=== PATIENT | male | born 1985 | race Caucasian/White ===

== ENCOUNTER 2016-05-17 09:52 | Emergency (ER) | payer OTHER, MEDICAID ==
[2016-05-17 11:36] VITALS: BP 115/70
[2016-05-17] MEDS ORDERED: Lidocaine 2% W/EPI 1:100,000* 20 ML MDV ONE (11:56)
--- NOTE | 2016-05-17 11:56 | UC ---
Skin Complaint HPI - HPI Summary HPI Summary: The patient comes in today for: 1. Lower back/tail bone soreness: Onset: 6 days ago, but mostly painful starting yesterday. Palliative/provocative: Pressure makes the area more tender. Quality: Sore Region: Coccyx area. Severity: 6/10 Time: Constant. Associated symptoms: The patient has a history of a pilonidal cyst (March of 2015). He saw Dr. Lindquist and lanced it. Fevers: None. Drainage: None. * - History of Current Complaint Chief Complaint: UCSkin Time Seen by Provider: 05/17/16 11:48 Stated Complaint: CYST ON TAILBONE Hx Obtained From: Patient - Allergy/Home Medications Allergies/Adverse Reactions: Allergies Allergy/AdvReac Type Severity Reaction Status Date / Time No Known Allergies Allergy Verified 03/30/15 17:10 Home Medications: Home Medications NK [No Home Medications Reported] 05/17/16 [History Confirmed 05/17/16] Review of Systems Constitutional: Negative Skin: Rash Eyes: Negative ENT: Negative Respiratory: Negative Cardiovascular: Negative Gastrointestinal: Negative Genitourinary: Negative All Other Systems Reviewed And Are Negative: Yes PMH/Surg Hx/FS Hx/Imm Hx Previously Healthy: Yes Endocrine History Of: Denies: Diabetes, Thyroid Disease, Hyperthyroidism, Hypothyroidism, Dyslipidemia Cardiovascular History Of: Denies: Cardiac Disorders, Hypertension, Pacemaker/ICD, Myocardial Infarction , Congestive Heart Failure, Atrial Fibrillation, Deep Vein Thrombosis, Bleeding Disorders Respiratory History Of: Denies: COPD, Asthma, Bronchitis, Pneumonia, Pulmonary Embolism GI/ History Of: Denies: Gastroesophageal Reflux, Ulcer, Gastrointestinal Bleed, Gall Bladder Disease, Kidney Stones, Diverticulitis, Renal Disease, Urosepsis Neurological History Of: Denies: TIA, CVA, Dementia, Seizures, Migraine Psychological History Of: Denies: Anxiety, Depression, Bipolar Disorder, Schizophrenia, Post Traumatic Stress Disorder Cancer History Of: Denies: Lung Cancer, Colorectal Cancer, Breast Cancer, Prostate Cancer, Cervical Cancer Other History Of: Negative For: HIV, Hepatitis B, Hepatitis C, Anticoagulant Therapy - Surgical History Surgical History: None - Family History Known Family History: Negative: Cardiac Disease, Hypertension - Social History Occupation: Unemployed Alcohol Use: Daily Substance Use Type: None Smoking Status (MU): Heavy Every Day Tobacco Smoker Type: Cigarettes Amount Used/How Often: 1 pack daily Length of Time of Smoking/Using Tobacco: started age 15 Physical Exam Triage Information Reviewed: Yes Appearance: Well-Appearing, No Pain Distress, Well-Nourished Vital Signs: Initial Vital Signs Temp 98.3 F 05/17/16 11:32 Pulse 96 05/17/16 11:32 Resp 16 05/17/16 11:32 BP 115/70 05/17/16 11:32 Pulse Ox 100 05/17/16 11:32 Vital Signs Reviewed: Yes Eyes: Positive: Conjunctiva Clear. Negative: Discharge ENT: Positive: Normal ENT inspection, Hearing grossly normal. Negative: Pharyngeal erythema, Nasal congestion, Nasal drainage, TM bulging, TM dull, TM red, Tonsillar swelling, Tonsillar exudate Dental: Negative: Gross Decay/Caries @, Dental Fracture @ Neck: Positive: Supple, Nontender, No Lymphadenopathy. Negative: Nuchal Rigidity Respiratory: Positive: Chest non-tender, Lungs clear, No respiratory distress, No accessory muscle use. Negative: Crackles, Wheezing Cardiovascular: Positive: RRR, No Murmur Abdomen Description: Positive: Nontender, No Organomegaly, Soft. Negative: Distended, Guarding, Peritoneal Signs Musculoskeletal: Positive: Strength Intact, ROM Intact Neurological: Positive: Alert, Muscle Tone Normal Psychological: Positive: Age Appropriate Behavior, Consolable Skin: Positive: Other - On the right side of the mid gluteal cleft, there was erythema about 4-5 cm. There was a 1 to 1.5 cm of fluctuant center.. Negative : rashes Course/Dx - Course Course Of Treatment: AFter less than 1 cc of 2% lidocaine with epi was instilled in the skin overlying the fluctuant area, an "X" cut was made. A mosquito hemostat was used to open the cavity. Gentle pressure was used to evacuate the pus. After running the hemostat in the cavity to break any pus pockets, an iodoform gauze ribben was put in the cavity and a dressing applied. - Differential Diagnoses - Skin Complaint Differential Diagnoses: Abscess, Cellulitis - Diagnoses Provider Diagnoses: Pilonidal cyst abscess. Discharge - Discharge Plan Condition: Stable Disposition: HOME Patient Education Materials: Pilonidal Cyst (GEN), Abscess (ED) Referrals: No Primary Care Phys,NOPCP [Primary Care Provider] - 1 Week (Please see your primary care provider in about a week. If you don't have a primary care provider, please reference the included sheet of local provider. If you get worse, please be seen sooner. If you are not able to get in timely, you can come back to see us.) Anrde Tidwell MD [Medical Doctor] - As Soon As Possible (Please contact Dr. Tidwell's office for an appointment for consideration of removal of your pilonidal cyst once healed. ) Additional Instructions: Please apply hot compresses or soak your rear end in hot water (as hot as you can) to the area keeping it hot during a full 20 minutes 4-5 times a day or as often as you can to help with healing. Check the area daily for redness, drainage, tenderness and swelling. These four conditions should be improving over the next 1-2 weeks. When the abscess cavity is so shallow that the drain is out, and there is minimal to no redness, drainage, tenderness, or swelling, please contact the general surgeon for consideration for removal.
== END 2016-05-17 12:42 | disposition home or self-care (01) ==
LOC: UCCORT 09:52
DX: L05.01 Pilonidal cyst with abscess (principal); F17.210 Nicotine dependence, cigarettes, uncomplicated
CPT/HCPCS: 10080; 87070; 87205; 87640; 87641; 99211; G0463

== ENCOUNTER 2018-06-06 10:01 | Emergency (ER) | payer BC, MEDICAID, OTHER ==
[2018-06-06 10:43] VITALS: BP 125/91
[2018-06-06] MEDS ORDERED: Fluorescein Sodium TOPICAL* 1 MG TEST STRIP OPHTHALMIC ONE (10:52)
[2018-06-06] MEDS ORDERED: Tetracaine 0.5% OPTH.SOL 4 ML* 1 DROP BTL ONE (10:58)
--- NOTE | 2018-06-06 10:59 | UC ---
Eye Complaint HPI - HPI Summary HPI Summary: 32 yo male with FB sensation left eye after grinding occurred two days ago tearing Td UTD - History of Current Complaint Chief Complaint: UCEye Stated Complaint: LT EYE CONCERN Time Seen by Provider: 06/06/18 10:40 Hx Obtained From: Patient Onset/Duration: Gradual Onset Timing: Constant Severity Initially: Moderate Severity Currently: Moderate Pain Intensity: 6 Pain Scale Used: 0-10 Numeric Location of Injury: Globe Character: Foreign Body Sensation Aggravating Factor(s): Light, Blinking Associated Signs And Symptoms: Positive: Drainage (Clear) Related History: Foreign Body Eyes: 1 - FB - Risk Factors Penetrating Injury Risk Factor: Grinding - Allergies/Home Medications Allergies/Adverse Reactions: Allergies Allergy/AdvReac Type Severity Reaction Status Date / Time No Known Allergies Allergy Verified 06/06/18 10:37 PMH/Surg Hx/FS Hx/Imm Hx Previously Healthy: Yes Other History Of: Negative For: HIV, Hepatitis B, Hepatitis C, Anticoagulant Therapy - Surgical History Surgical History: None - Family History Known Family History: Negative: Cardiac Disease, Hypertension - Social History Alcohol Use: Occasionally Substance Use Type: None Smoking Status (MU): Heavy Every Day Tobacco Smoker Type: Cigarettes Amount Used/How Often: 1 PPD Length of Time of Smoking/Using Tobacco: started age 15 Review of Systems All Other Systems Reviewed And Are Negative: Yes Constitutional: Positive: Negative Skin: Positive: Negative Eyes: Positive: Eye Redness ENT: Positive: Negative Respiratory: Positive: Negative Cardiovascular: Positive: Negative Gastrointestinal: Positive: Negative Genitourinary: Positive: Negative Motor: Positive: Negative Neurovascular: Positive: Negative Musculoskeletal: Positive: Negative Neurological: Positive: Negative Psychological: Positive: Negative Physical Exam Triage Information Reviewed: Yes Appearance: Well-Appearing, No Pain Distress, Well-Nourished Vital Signs: Initial Vital Signs Temp 98 F 06/06/18 10:37 Pulse 73 06/06/18 10:37 Resp 14 06/06/18 10:37 BP 125/91 06/06/18 10:37 Pulse Ox 100 06/06/18 10:37 Vital Signs Reviewed: Yes Eyes: Positive: Conjunctiva Inflamed - L, Other: - eomi/perrl, left upper lid everted...no fb, FB noted after flourescein ENT: Positive: Nasal congestion, Nasal drainage. Negative: Tonsillar swelling, Tonsillar exudate, Trismus, Muffled voice, Hoarse voice, Uvula midline Neck: Positive: Supple, Nontender, No Lymphadenopathy Respiratory: Positive: Lungs clear, Normal breath sounds, No respiratory distress, No accessory muscle use Cardiovascular: Positive: RRR, No Murmur Musculoskeletal: Positive: ROM Intact, No Edema Neurological: Positive: Alert Psychological Exam: Normal Skin Exam: Normal Procedures - Procedure Summary Procedure Summary: 2 drops tetracaine left eye FB removed from left cornea with q tip Eye Complaint Course/Dx - Differential Dx/Diagnosis Provider Diagnosis: Foreign body of left cornea Discharge - Sign-Out/Discharge Documenting (check all that apply): Patient Departure All imaging exams completed and their final reports reviewed: No Studies - Discharge Plan Condition: Stable Disposition: HOME Prescriptions: Polymyx/Trimethoprim OPTH* [Polytrim OPHTH*] 1 - 2 drop LEFT EYE QID 3 Days #1 btl Patient Education Materials: Eye Foreign Body (ED) Referrals: Gonzales Cespedes MD [Medical Doctor] - 1 Day Hodan Sheikh MD [Medical Doctor] - 1 Day Additional Instructions: foreign body removed see eye doctor tomorrow if not better - Billing Disposition and Condition Condition: STABLE Disposition: Home
== END 2018-06-06 11:20 | disposition home or self-care (01) ==
LOC: UCCORT 10:01
DX: T15.02XA Foreign body in cornea, left eye, initial encounter (principal); X58.XXXA Exposure to other specified factors, initial encounter; Y92.9 Unspecified place or not applicable; F17.210 Nicotine dependence, cigarettes, uncomplicated
CPT/HCPCS: 65220; 99212; A9270-GY; G0463

== ENCOUNTER 2018-08-14 19:20 | Emergency (ER) | payer BC ==
[2018-08-14] MEDS ORDERED: Ketorolac INJ* 60 MG/2 ML VIAL IM ONE (20:36)
[2018-08-14] MEDS ORDERED: methylPREDNISolone 125 MG* 2 ML VIAL IM ONE (20:36)
[2018-08-14 21:10] VITALS: BP 111/69
--- NOTE | 2018-08-14 21:44 | UC ---
Back Pain HPI - HPI Summary HPI Summary: Had the sudden onset of low back pain, electric, burning pain, radiating down both legs since bending over 2 hours before coming in. - History of Current Complaint Chief Complaint: UCBackPain Stated Complaint: BACK PAIN Time Seen by Provider: 08/14/18 20:29 Hx Obtained From: Patient Onset/Duration: Sudden Onset, Lasting Hours - 2 Timing: Constant Severity Initially: Severe Severity Currently: Severe Pain Intensity: 8 Back Pain: Is Discrete @ - low back, Radiates To - both legs Character: Sharp, Burning Aggravating Factor(s): Movement, Walking Alleviating Factor(s): Nothing Associated Signs And Symptoms: Positive: Weakness - feels like legs want to give out. Negative: Bladder Incontinence, Bowel Incontinence - Allergies/Home Medications Allergies/Adverse Reactions: Allergies Allergy/AdvReac Type Severity Reaction Status Date / Time No Known Allergies Allergy Verified 08/14/18 20:25 PMH/Surg Hx/FS Hx/Imm Hx Previously Healthy: Yes Other History Of: Negative For: HIV, Hepatitis B, Hepatitis C, Anticoagulant Therapy - Surgical History Surgical History: None - Family History Known Family History: Negative: Cardiac Disease, Hypertension - Social History Occupation: Employed Full-time Lives: With Family Alcohol Use: Occasionally Substance Use Type: None Smoking Status (MU): Heavy Every Day Tobacco Smoker Type: Cigarettes Amount Used/How Often: 1 PPD Length of Time of Smoking/Using Tobacco: started age 15 Review of Systems All Other Systems Reviewed And Are Negative: Yes Musculoskeletal: Positive: Arthralgia - low back Neurological: Positive: Weakness, Paresthesia Is Patient Immunocompromised?: No Physical Exam Triage Information Reviewed: Yes Appearance: Well-Appearing, Well-Nourished, Pain Distress - severe Vital Signs: Initial Vital Signs Temp 98.6 F 08/14/18 20:22 Pulse 84 08/14/18 20:22 Resp 16 08/14/18 20:22 BP 127/77 08/14/18 20:22 Pulse Ox 99 08/14/18 20:22 Vital Signs Reviewed: Yes Eyes: Positive: Conjunctiva Clear Neck exam: Normal Respiratory Exam: Normal Cardiovascular Exam: Normal Musculoskeletal: Positive: ROM Limited @ - lumbar ROM Neurological: Positive: Other: - decreased sensation to pinprick both medial posterior upper legs. Psychological Exam: Normal Skin Exam: Normal Diagnostics - Radiology No standard instances Radiology Interpretation Completed By: ED Physician Summary of Radiographic Findings: No acute changes Back Pain Course/Dx - Differential Dx/Diagnosis Differential Diagnosis/HQI/PQRI: Cauda Equina Syndrome, Herniated Disc, Strain, Sprain Provider Diagnosis: Lumbosacral radiculitis Discharge - Sign-Out/Discharge Documenting (check all that apply): Patient Departure All imaging exams completed and their final reports reviewed: No - Discharge Plan Condition: Stable Disposition: HOME Prescriptions: Gabapentin CAP(*) [Neurontin 300 CAP(*)] 300 mg PO TID #90 cap predniSONE TAB* [Deltasone TAB*] 50 mg PO DAILY #10 tab Patient Education Materials: Lumbar Disc Herniation (ED), Prednisone (By mouth) , Gabapentin (By mouth) Forms: *Work Release Referrals: No Primary Care Phys,NOPCP [Primary Care Provider] - Additional Instructions: GABAPENTIN: Gabapentin is an anti-seizure medication that is more often used for nerve pain. It helps to stabilize the nerve to stop the pain. Its primary side effect is sedation which will improve over time. Most people will start with only one capsule 1 to 2 hours before bed, but if your pain is more severe you may want to start with one capsule twice a day. If the pain is still an issue after another 1-2days the dose may be increased to a maximum of 1 capsule 3 times a day. Decrease the dose by one capsule a day if there is excessive sedation or it is not working. You can also decrease it to discontinue it if the pain is resolving. FOLLOW UP WITH YOUR CHIROPRACTOR FOR POSSIBLE RETURN TO WORK. IF NOT IMPROVING WITH SIMPLE MOBILIZATION, CONSIDER PHYSICAL THERAPY WITH TRACTION. - Billing Disposition and Condition Condition: STABLE Disposition: Home
--- NOTE | 2018-08-15 12:44 | ED ---
Progress - Progress Note Progress Note: final xray report reviewed. No acute findings, but scoliosis present. Course/Dx - Diagnoses Provider Diagnoses: Lumbosacral radiculitis Discharge - Sign-Out/Discharge Documenting (check all that apply): Patient Departure All imaging exams completed and their final reports reviewed: Yes - Discharge Plan Condition: Stable Disposition: HOME Prescriptions: Gabapentin CAP(*) [Neurontin 300 CAP(*)] 300 mg PO TID #90 cap predniSONE TAB* [Deltasone TAB*] 50 mg PO DAILY #10 tab Patient Education Materials: Prednisone (By mouth), Gabapentin (By mouth), Lumbar Disc Herniation (ED) Forms: *Work Release Referrals: No Primary Care Phys,NOPCP [Primary Care Provider] - Additional Instructions: GABAPENTIN: Gabapentin is an anti-seizure medication that is more often used for nerve pain. It helps to stabilize the nerve to stop the pain. Its primary side effect is sedation which will improve over time. Most people will start with only one capsule 1 to 2 hours before bed, but if your pain is more severe you may want to start with one capsule twice a day. If the pain is still an issue after another 1-2days the dose may be increased to a maximum of 1 capsule 3 times a day. Decrease the dose by one capsule a day if there is excessive sedation or it is not working. You can also decrease it to discontinue it if the pain is resolving. FOLLOW UP WITH YOUR CHIROPRACTOR FOR POSSIBLE RETURN TO WORK. IF NOT IMPROVING WITH SIMPLE MOBILIZATION, CONSIDER PHYSICAL THERAPY WITH TRACTION. - Billing Disposition and Condition Condition: STABLE Disposition: Home
== END 2018-08-14 22:00 | disposition home or self-care (01) ==
LOC: UCCORT 19:20
DX: M54.17 Radiculopathy, lumbosacral region (principal); M41.9 Scoliosis, unspecified; F17.210 Nicotine dependence, cigarettes, uncomplicated
CPT/HCPCS: 72100; 99212; G0463; J1885; J2930